=== PATIENT | female | born 1990 | race American Indian/Alaskan Native ===

== ENCOUNTER 2017-04-28 10:05 | Emergency (ER) | payer MEDICAID, OTHER ==
[2017-04-28 10:06] VITALS: BMI 47.4
[2017-04-28 10:14] VITALS: TEMP 98.6
[2017-04-28] MEDS ORDERED: Sodium Chloride 0.9% 1,000 ML IV STA (10:24)
--- NOTE | 2017-04-28 10:40 | ED PDOC ---
Arrival/HPI - General Chief Complaint: Female Genitourinary Time Seen by Provider: 04/28/17 10:10 Historian: Patient - History of Present Illness Narrative History of Present Illness (Text): 04/28/17 10:37 27-year-old female presents today with heavy vaginal bleeding for the past 3 days. Patient states her periods are very irregular and occasionally she will have an episode of heavy bleeding. Patient states her cramping was a little more than usual over the past few days. Patient states the cramping in the abdomen has greatly improved since last night. She denies fevers or chills. Complaining of some nausea no vomiting or diarrhea. No dizziness or weakness. Patient states last time she was in the emergency room she was told that she had ovarian cysts and the symptoms were very similar. Patient has not taken any medications for pain and is refusing any medications for pain at this time. Patient states the bleeding has slightly decreased over the past 3 days. Time/Duration: Other (3 days) Symptom Onset: Gradual Symptom Course: Improving Quality: Cramping Severity Level: 3 Past Medical History - Provider Review Nursing Documentation Reviewed: Yes - Travel History Have you recently traveled outside [place] w/in the past 3 mons?: No - Past History Past History: No Previous - Psychiatric Hx Substance Use: No Family/Social History - Physician Review Nursing Documentation Reviewed: Yes Family/Social History: Unknown Family HX Smoking Status: Never Smoked Hx Alcohol Use: No Hx Substance Use: No Allergies/Home Meds Allergies/Adverse Reactions: Allergies No Known Allergies Allergy (Verified 04/28/17 10:14) Home Medications: Home Meds Medication Instructions Recorded Confirmed No Known Home Med 02/25/16 04/28/17 Review of Systems - Review of Systems Constitutional: absent: Fatigue, Fevers Respiratory: absent: SOB, Cough Cardiovascular: absent: Chest Pain, Palpitations Gastrointestinal: Abdominal Pain. absent: Nausea, Vomiting Genitourinary Female: Vaginal Bleeding. absent: Dysuria, Frequency, Hematuria, Vaginal Discharge Musculoskeletal: absent: Arthralgias, Back Pain, Neck Pain Skin: absent: Rash, Pruritis Neurological: absent: Headache, Dizziness Psychiatric: absent: Anxiety, Depression Physical Exam Vital Signs Reviewed: Yes Vital Signs Temp Pulse Resp BP Pulse Ox 04/28/17 12:00 77 18 126/73 98 04/28/17 10:11 98.6 F 79 16 155/98 H 100 Temperature: Afebrile Blood Pressure: Hypertensive Pulse: Regular Respiratory Rate: Normal Appearance: Positive for: Well-Appearing, Non-Toxic, Comfortable Pain Distress: None Mental Status: Positive for: Alert and Oriented X 3 - Systems Exam Head: Present: Atraumatic Mouth: Present: Moist Mucous Membranes Neck: Present: Normal Range of Motion Respiratory/Chest: Present: Clear to Auscultation, Good Air Exchange. No: Respiratory Distress, Accessory Muscle Use Cardiovascular: Present: Regular Rate and Rhythm, Normal S1, S2. No: Murmurs Abdomen: Present: Normal Bowel Sounds. No: Tenderness, Distention, Peritoneal Signs, Rebound, Guarding Genitourinary/Pelvic Exam: Present: Normal External Genitalia, Vaginal Bleeding , Cervical os Closed, Other (chaparoned by ER KAROLINA Stubbs). No: Vaginal Discharge, Vaginal Lesions, Adenexal Tenderness, Adenexal Mass, Cervical Motion Tendernes, Odor Back: Present: Normal Inspection Upper Extremity: Present: Normal ROM Lower Extremity: Present: Normal ROM Neurological: Present: GCS=15, Speech Normal, Gait Normal Skin: Present: Warm, Dry, Normal Color. No: Rashes Psychiatric: Present: Alert, Oriented x 3 Medical Decision Making ED Course and Treatment: 04/28/17 10:40 Patient is nontoxic well appearing in no distress. CBC: wnl CMP: wnl Urinalysis: + blood Ultrasound: FINDINGS: UTERUS: Measures 8.3 x 6.0 x 6.0 cm. Uterine is bulbous anteriorly and superiorly -as before. This is attributed to a dominant anterior fundal uterine fibroid- intramural to sub serosal now measuring 2.9 x 2.8 x 3.0 cm. Previously this measured 2.4 x 2.2 x 2.4 cm. ENDOMETRIUM: Measures 8 mm in diameter. Unremarkable. CERVIX: No cervical abnormality identified. RIGHT OVARY: Measures 2.3 x 1.9 x 2.4 cm. No solid mass. Normal flow. The prior right ovarian cyst has resolved/is no longer seen LEFT OVARY: Measures 3.0 x 1.9 x 2.9 cm. No solid mass. Normal flow. The prior left ovarian cyst, follicular type, is no longer seen -consistent with its resolution as well FREE FLUID: No significant free fluid noted. OTHER FINDINGS: None. IMPRESSION: Anterior fundal intrauterine Sumit-intramural to sub serosal type. This is similar to a few mm larger in size compared to the 2016 study. No submucosal extension noted. The endometrium in this exam is within normal limits. Interval resolution of prior ovarian cysts Patient reassessment: Patient nontoxic well-appearing no distress. Patient hemodynamically stable. Discussed all the results the patient. advised f/u with the treating engineer within the next 2 days. advised immediate return if symptoms worsen,persist or if new symptoms develop. Impression: Vaginal bleeding, fibroid Tylenol every 4 hours as needed for pain Increase fluids Followup with the treating engineer within the next 2 days Return immediately if symptoms worsen persist or if new symptoms develop: High fevers, heavy bleeding, severe abdominal pain, vomiting, diarrhea, dizziness or weakness or any other concerning symptoms develop. - Lab Interpretations Lab Results: 04/28/17 10:35 04/28/17 10:35 Lab Results 04/28/17 10:35: WBC 6.2, RBC 5.37, Hgb 11.1 L, Hct 34.2 L, MCV 63.7 L, MCH 20.7 L, MCHC 32.5, RDW 17.5 H, Plt Count 239, Gran % 51.0, Lymph % (Auto) 40.5 H, [place] % (Auto) 6.5 H, Eos % (Auto) 1.5, Baso % (Auto) 0.5, Gran # 3.15, Lymph # 2.5, [place] # 0.4, Eos # 0.1, Baso # 0.03 04/28/17 10:35: Sodium 140, Potassium 4.5, Chloride 103, Carbon Dioxide 28, Anion Gap 14, BUN 12, Creatinine 0.7, Est GFR ( Amer) > 60, Est GFR (Non- Af Amer) > 60, Random Glucose 103, Calcium 9.5, Total Bilirubin 0.9, AST 29, ALT 31, Alkaline Phosphatase 66, Total Protein 8.3, Albumin 4.4, Globulin 3.9, Albumin/Globulin Ratio 1.1 04/28/17 10:30: Urine Color Light red, Urine Appearance Cloudy, Urine pH 6.0, Ur Specific [place] >= 1.030, Urine Protein 30 H, Urine Glucose (UA) Negative, Urine Ketones Negative, Urine Blood Large H, Urine Nitrate Negative, Urine Bilirubin Negative, Urine Urobilinogen 0.2, Ur Leukocyte Esterase Negative, Urine RBC Tntc, Urine WBC 0 - 2, Ur Epithelial Cells 1 - 3, Urine Bacteria Few - RAD Interpretation Radiology Orders: 04/28/17 10:36 TRANSVAGINAL [US] Stat - Medication Orders Current Medication Orders: Discontinued Medications Sodium Chloride (Sodium Chloride 0.9%) 1,000 mls @ 999 mls/hr IV .Q1H1M STA Stop: 04/28/17 11:24 Last Admin: 04/28/17 10:43 Dose: 999 mls/hr eMAR Start Stop Document 04/28/17 10:43 SF (Rec: 04/28/17 10:43 [place] [id number] Intravenous Solution Start Date 04/28/17 Start Time 10:43 End Date 04/28/17 End time 11:44 Total Infusion Time 61 Disposition/Present on Arrival - Present on Arrival Any Indicators Present on Arrival: No History of DVT/PE: No History of Uncontrolled Diabetes: No Urinary Catheter: No History of Decub. Ulcer: No History Surgical Site Infection Following: None - Disposition Have Diagnosis and Disposition been Completed?: Yes Diagnosis: Vaginal bleeding, Fibroid Disposition: HOME/ ROUTINE Disposition Time: 13:43 Patient Plan: Discharge Condition: GOOD Discharge Instructions (ExitCare): Uterine Fibroids (ED), Menstruation (ED) Additional Instructions: Tylenol every 4 hours as needed for pain Increase fluids Followup with the treating engineer within the next 2 days Return immediately if symptoms worsen persist or if new symptoms develop: High fevers, heavy bleeding, severe abdominal pain, vomiting, diarrhea, dizziness or weakness or any other concerning symptoms develop. Referrals: Dennis Chambers MD [Staff Provider] - Follow up with primary Tao Hughes MD [Staff Provider] - [facility] [[facility]] - Follow up with primary Forms: [facility] (Hungarian), WORK NOTE
[2017-04-28 10:45] LABS: URINE APPEARANCE CLOUDY (CLEAR); URINE BILIRUBIN NEGATIVE (NEGATIVE); URINE BLOOD LARGE (NEGATIVE); URINE COLOR LIGHT RED (YELLOW); URINE GLUCOSE (UA) NEGATIVE (NEGATIVE); URINE KETONE NEGATIVE (NEGATIVE); URINE LEUKOCYTE ESTERASE NEGATIVE Leu/uL (NEGATIVE); URINE PROTEIN 30 mg/dL (<30 mg/dL); URINE UROBILINOGEN 0.2 E.U./dL (<1 E.U./dL)
[2017-04-28 10:49] LABS: BASO # 0.03 K/mm3 (0.0-2.0); BASO % 0.5 % (0.0-3.0); EOS # 0.1 (0.0-0.7); EOS % 1.5 % (1.5-5.0); GRAN # 3.15 (1.4-6.5); HEMATOCRIT 34.2 % (36.0-48.0); LYMPH # 2.5 (1.2-3.4); LYMPH % 40.5 % (22.0-35.0); MEAN CELL VOLUME 63.7 fl (80.0-105.0); MEAN CORPUSCULAR HEMOGLOBIN 20.7 pg (25.0-35.0); MEAN CORPUSCULAR HGB CONC 32.5 g/dl (31.0-37.0); MONO # 0.4 (0.1-0.6); MONO % 6.5 % (1.0-6.0); PLATELET COUNT 239 10^3/uL (120.0-450.0); RED CELL DISTRIBUTION WIDTH 17.5 % (11.5-14.5); WHITE BLOOD COUNT 6.2 10^3/ul (4.5-11.0)
[2017-04-28 10:49] LABS: URINE BACTERIA FEW (NEG); URINE RBC TNTC /hpf (0-2); URINE WBC 0 - 2 /hpf (0-6)
[2017-04-28 10:58] LABS: ALB/GLOB RATIO 1.1 (1.1-1.8); ALKALINE PHOSPHATASE 66 U/L (38-126); ALT/SGPT 31 U/L (7-56); AST/SGOT 29 U/L (14-36); BILIRUBIN,TOTAL 0.9 mg/dL (0.2-1.3); BLOOD UREA NITROGEN 12 mg/dL (7-21); CALCIUM 9.5 mg/dL (8.4-10.5); CARBON DIOXIDE 28 mmol/L (21-33); CHLORIDE 103 mmol/L (98-107); GFR AFRICAN-AMERICAN > 60; GLUCOSE,RANDOM 103 mg/dL (70-110); POTASSIUM 4.5 mmol/L (3.6-5.0); SODIUM 140 mmol/L (132-148); TOTAL PROTEIN 8.3 g/dL (5.8-8.3)
--- NOTE | 2017-04-28 13:41 | US ---
HISTORY: pain/bleeding 27-year-old female. LMP 04/26/2017 COMPARISON: 02/25/2016 TECHNIQUE: Transvaginal FINDINGS: UTERUS: Measures 8.3 x 6.0 x 6.0 cm. Uterine is bulbous anteriorly and superiorly -as before. This is attributed to a dominant anterior fundal uterine fibroid-intramural to sub serosal now measuring 2.9 x 2.8 x 3.0 cm. Previously this measured 2.4 x 2.2 x 2.4 cm. ENDOMETRIUM: Measures 8 mm in diameter. Unremarkable. CERVIX: No cervical abnormality identified. RIGHT OVARY: Measures 2.3 x 1.9 x 2.4 cm. No solid mass. Normal flow. The prior right ovarian cyst has resolved/is no longer seen LEFT OVARY: Measures 3.0 x 1.9 x 2.9 cm. No solid mass. Normal flow. The prior left ovarian cyst, follicular type, is no longer seen -consistent with its resolution as well FREE FLUID: No significant free fluid noted. OTHER FINDINGS: None. IMPRESSION: Anterior fundal intrauterine Sumit-intramural to sub serosal type. This is similar to a few mm larger in size compared to the 2016 study. No submucosal extension noted. The endometrium in this exam is within normal limits. Interval resolution of prior ovarian cysts
[2017-04-28 14:05] VITALS: BP 124/80; PULSE 75; RESP 17; O2SAT 99
== END 2017-04-28 14:05 | disposition home or self-care (01) ==
LOC: ED 10:05
DX: N93.9 Abnormal uterine and vaginal bleeding, unspecified (principal); D25.1 Intramural leiomyoma of uterus
CPT/HCPCS: 76830; 80053; 81001; 85025; 96360; 99285; J7040